=== PATIENT | female | born 1970 | race Hispanic/Latino ===

== ENCOUNTER 2018-08-16 19:12 | Observation (INO) | payer SELFPAY ==
[~2018-08-16] VITALS: Ht 165.1 cm; Wt 158.4 kg
--- OUTSIDE RECORDS SUMMARY | 2018-08-16 19:16 | XMS REPORT ---
Author Author Admin, Kersey Organization [facility] Address [address] [place] [address] Phone Allergies, Adverse Reactions, Alerts Allergy Name Reaction Description Start Date Severity Status Provider No Known Allergies Roselia Reinoso CMA Conditions or Problems Problem Name Problem Code Onset Date Status Entry Date Provider Comment Standard Description Annotate Exertional shortness of breath 786.09 Active Karoline Cespedes MD Other dyspnea and respiratory abnormality Hypertensive urgency 401.0 Active Karoline Cespedes MD Malignant essential hypertension Complex endometrial hyperplasia 621.32 Active Sara Gutierrez MD Complex endometrial hyperplasia without atypia Abnormal uterine bleeding 626.9 Active Sara Gutierrez MD Unspecified disorders of menstruation and other abnormal bleeding from female genital tract Vaccination Against Influenza V04.81 Active Kodi Reinoso MD Need for prophylactic vaccination and inoculation against influenza Abnormal cervical Pap AGC (atypical glandular cells) 795.00 Active Mily Hobbs MD Abnormal glandular Papanicolaou smear of cervix Chlamydia cervicitis 099.53 Active Mily Hobbs MD Venereal disease of the lower genitourinary sites due to Chlamydia trachomatis Arthritis 716.90 Active Mily Hobbs MD Arthropathy, unspecified, site unspecified Catheter Finisher And Inspector well woman exam V72.31 Active Mily Hobbs MD Routine gynecological examination MORBID OBESITY Active Mily Hobbs MD Morbid obesity Std screening V74.5 Active Mily Hobbs MD Screening examination for venereal disease Medication List Medication Instructions Start Date Stop Date Generic Name NDC Status Provider Patient Instruction No Drug Therapy Prescribed - none known did ask Karoline Cespedes MD Immunizations Vaccine Administration Date Value Standard Description influenza immunization (Flu Vax) has been administered given influenza virus vaccine, unspecified formulation Vital Signs Date Name Value Unit Range Description blood pressure, diastolic, second observation 106 mm[Hg] BP granados blood pressure, diastolic 113 mm[Hg] BP granados blood pressure, systolic, second observation 155 mm[Hg] BP sys blood pressure, systolic 169 mm[Hg] BP sys height E&M 65 [in_us] Bdy height pulse rate E&M 103 /min Heart rate respiratory rate E&M 22 /min Resp rate temperature E&M 98.4 [degF] Body temperature weight E&M 352 [lb_av] Weight Measured blood pressure, diastolic, second observation 86 mm[Hg] BP granados blood pressure, diastolic 89 mm[Hg] BP granados blood pressure, systolic, second observation 171 mm[Hg] BP sys blood pressure, systolic 181 mm[Hg] BP sys pulse rate E&M 81 /min Heart rate pulse rate #2 82 Heart rate blood pressure, diastolic 87 mm[Hg] BP granados blood pressure, systolic 143 mm[Hg] BP sys pulse rate E&M 72 /min Heart rate blood pressure, diastolic 89 mm[Hg] BP granados blood pressure, systolic 131 mm[Hg] BP sys pulse rate E&M 88 /min Heart rate blood pressure, diastolic 90 mm[Hg] BP granados blood pressure, systolic 141 mm[Hg] BP sys pulse rate E&M 80 /min Heart rate blood pressure, diastolic 68 mm[Hg] BP granados blood pressure, systolic 114 mm[Hg] BP sys pulse rate E&M 64 /min Heart rate blood pressure, diastolic 79 mm[Hg] BP granados blood pressure, systolic 118 mm[Hg] BP sys height E&M 65 [in_us] Bdy height pulse rate E&M 74 /min Heart rate respiratory rate E&M 18 /min Resp rate temperature E&M 98.4 [degF] Body temperature weight E&M 355.13 [lb_av] Weight Measured blood pressure, diastolic 83 mm[Hg] BP granados blood pressure, systolic 137 mm[Hg] BP sys height E&M 65 [in_us] Bdy height pulse rate E&M 81 /min Heart rate respiratory rate E&M 17 /min Resp rate temperature E&M 98.2 [degF] Body temperature weight E&M 356 [lb_av] Weight Measured blood pressure, diastolic 83 mm[Hg] BP granados blood pressure, systolic 125 mm[Hg] BP sys height E&M 65 [in_us] Bdy height pulse rate E&M 72 /min Heart rate respiratory rate E&M 17 /min Resp rate temperature E&M 98.1 [degF] Body temperature weight E&M 356.38 [lb_av] Weight Measured blood pressure, diastolic 83 mm[Hg] BP granados blood pressure, systolic 144 mm[Hg] BP sys height E&M 65 [in_us] Bdy height pulse rate E&M 69 /min Heart rate respiratory rate E&M 17 /min Resp rate temperature E&M 98.3 [degF] Body temperature weight E&M 357.25 [lb_av] Weight Measured blood pressure, diastolic 84 mm[Hg] BP granados blood pressure, systolic 118 mm[Hg] BP sys height E&M 65 [in_us] Bdy height pulse rate E&M 75 /min Heart rate respiratory rate E&M 18 /min Resp rate temperature E&M 98.2 [degF] Body temperature weight E&M 357 [lb_av] Weight Measured blood pressure, diastolic 112 mm[Hg] BP granados blood pressure, systolic 167 mm[Hg] BP sys height E&M 65 [in_us] Bdy height pulse rate E&M 86 /min Heart rate respiratory rate E&M 16 /min Resp rate temperature E&M 98.1 [degF] Body temperature weight E&M 362 [lb_av] Weight Measured blood pressure, diastolic 93 mm[Hg] BP granados blood pressure, systolic 157 mm[Hg] BP sys height E&M 65 [in_us] Bdy height pulse rate E&M 75 /min Heart rate respiratory rate E&M 16 /min Resp rate temperature E&M 97.5 [degF] Body temperature weight E&M 364 [lb_av] Weight Measured blood pressure, diastolic 84 mm[Hg] BP granados blood pressure, systolic 140 mm[Hg] BP sys height E&M 65 [in_us] Bdy height pulse rate E&M 88 /min Heart rate respiratory rate E&M 18 /min Resp rate temperature E&M 98.4 [degF] Body temperature weight E&M 361 [lb_av] Weight Measured blood pressure, diastolic, second observation 76 mm[Hg] BP granados blood pressure, diastolic 76 mm[Hg] BP granados blood pressure, systolic, second observation 130 mm[Hg] BP sys blood pressure, systolic 130 mm[Hg] BP sys height E&M 65 [in_us] Bdy height pulse rate E&M 65 /min Heart rate respiratory rate E&M 18 /min Resp rate temperature E&M 97.7 [degF] Body temperature weight E&M 361.25 [lb_av] Weight Measured Diagnostic Results Date Name Value Unit Range Description Lab Report: Chlamydia/GC Amplification - Microbiology Neisseria gonorrhoeae DNA probe Negative Negative Lab Report: Comp. Metabolic Panel (14), Lipid Panel, Hemoglobin A1c, RPR ... - Chemistry sodium, serum 139 mmol/L 330-732 5539/10/03 thyroid stimulating hormone, serum 2.400 u[iU]/mL 0.450-4.500 Lab Report: Comp. Metabolic Panel (14), Lipid Panel, Hemoglobin A1c, RPR ... - Serology rapid plasma reagin antibody, serum Non Reactive Non Reactive Lab Report: Lipid Panel - Chemistry very low density lipoproteins 18 mg/dL 5-40 Lab Report: Comp. Metabolic Panel (14), Lipid Panel, Hemoglobin A1c, RPR ... - Chemistry hepatitis B surface antigen Negative Negative carbon dioxide, venous blood 26 mmol/L 20-29 chloride, serum 98 mmol/L 96-106 Lab Report: Lipid Panel - Chemistry triglyceride, serum, fasting 89 mg/dL 0-149 Lab Report: Comp. Metabolic Panel (14), Lipid Panel, Hemoglobin A1c, RPR ... - Chemistry calcium, serum 8.8 mg/dL 8.7-10.2 urea nitrogen, blood 10 mg/dL 6-24 alanine aminotransferase (SGPT), serum 59 U/L 0-32 protein, total, serum 7.3 g/dL 6.0-8.5 alkaline phosphatase, serum 85 U/L 39-117 Lab Report: Comp. Metabolic Panel (14), Lipid Panel, Hemoglobin A1c, RPR ... - Serology hepatitis C antibody, serum <0.1 0.0-0.9 Lab Report: Lipid Panel - Chemistry LDL cholesterol, serum 111 mg/dL 0-99 Lab Report: Comp. Metabolic Panel (14), Lipid Panel, Hemoglobin A1c, RPR ... - Chemistry urea nitrogen/creatinine ratio, serum 17 9-23 hemoglobin A1C, blood, as % of total hemoglobin 5.3 % 4.8-5.6 Lab Report: Lipid Panel - Chemistry HDL cholesterol, serum 49 mg/dL >39 Lab Report: Comp. Metabolic Panel (14), Lipid Panel, Hemoglobin A1c, RPR ... - Genetics/fertility eGFR if 126 mL/min/1.73m2 >59 Lab Report: Comp. Metabolic Panel (14), Lipid Panel, Hemoglobin A1c, RPR ... - Chemistry globulin, serum 3.1 1.5-4.5 Estimated Glomerular Filtration Rate (calc) 109 mL/min/1.73m2 >59 albumin/globulin ratio, serum 1.4 1.2-2.2 creatinine, serum 0.58 mg/dL 0.57-1.00 Lab Report: Lipid Panel - Chemistry cholesterol, serum 178 mg/dL 100-199 Lab Report: Comp. Metabolic Panel (14), Lipid Panel, Hemoglobin A1c, RPR ... - Chemistry bilirubin, serum, total 0.5 mg/dL 0.0-1.2 Lab Report: Chlamydia/GC Amplification - Lab chlamydia DNA probe Negative Negative Lab Report: Comp. Metabolic Panel (14), Lipid Panel, Hemoglobin A1c, RPR ... - Chemistry blood glucose, random 96 mg/dL 65-99 aspartate aminotransferase (SGOT), serum 58 U/L 0-40 potassium, serum 4.3 mmol/L 3.5-5.2 albumin, serum 4.2 g/dL 3.5-5.5 Encounters Date Encounter Provider Code Facility 17:51:41 CDT Est Patient Exp Problem - 96043 Karoline Cespedes MD CPT-38711 [facility] 09:19:09 EDGER MACHINE HELPER Est Patient Exp Problem - 11591 Kodi Reinoso MD CPT-39382 [facility] 11:12:00 EDGER MACHINE HELPER Est Patient Exp Problem - 68597 Sara Gutierrez MD CPT-61893 [facility] 10:02:40 EDGER MACHINE HELPER Est Patient Exp Problem - 22060 Sara Gutierrez MD CPT-76198 [facility] 10:46:56 EDGER MACHINE HELPER Est Patient Exp Problem - 19191 Sara Gutierrez MD CPT-23616 [facility] OB 14:45:10 EDGER MACHINE HELPER Est Patient Detailed - 25768 Sara Gutierrez MD CPT-53216 [facility] 09:45:25 EDGER MACHINE HELPER Est Patient Exp Problem - 44783 Kodi Reinoso MD CPT-94427 [facility] 10:30:34 EDGER MACHINE HELPER Est Patient Problem Focus - 80730 Rodney Cobb MD CPT-16311 [facility] 09:24:26 CDT Est Patient Problem Focus - 81962 Mily Hobbs MD CPT-69775 [facility] 10:07:46 CDT Est Patient Problem Focus - 19451 Mily Hobbs MD CPT-09954 [facility] OB Procedures Code Procedure Name Date Entry Date Standard Description CPT-18732 INFLUENZA VACCINE QUADRIVALENT 3 YRS PLUS IM 09:44:17 EDGER MACHINE HELPER CPT-70974 Urinalysis - Dip only - In House 11:33:20 CDT CPT-02604 New Patient Well Exam (40 - 64 Yrs) - 26763 11:33:19 CDT CPT-27050 New Patient Well Exam (65 & Over) - 05418 11:33:19 CDT
--- OUTSIDE RECORDS SUMMARY | 2018-08-16 19:16 | XMS REPORT | Clinical Summary ---
Author Author [facility] Organization [facility] Address Unknown Phone Unavailable Care Team Providers Care Customer Service Professional Name Role Phone Polina Terry MD PCP Allergies No Known Allergies Medications End Date Status Medication Sig Dispensed Refills Start Date Active norgestimate-ethinyl Take 1 tablet 28 tablet 3 estradiol (ORTHO by mouth 9 TRI-CYCLEN LO) daily. 0.18/0.215/0.25 mg-25 mcg tabletIndications: Abnormal uterine bleeding (AUB) 06/11/2018 benzonatate (TESSALON) Take 1 20 capsule 0 100 mg capsule by 9 capsuleIndications: Upper mouth 3 times respiratory tract daily as infection, unspecified needed for up type to 7 days for Cough. 07/14/2018 Discontinued azithromycin (ZITHROMAX) Take 1 tablet 5 tablet 0 500 mg tabletIndications: by mouth 9 Upper respiratory tract daily. infection, unspecified type Active Problems Not on file Encounters Care Team Description Date Type Specialty Raul Anderson MD Abnormal uterine bleeding (AUB) (Primary Dx) 07/14/2018 Office Visit Family Practice 07/14/2018 Travel Polina Terry MD Preventative health care (Primary Dx); Dysplasia of cervix, low grade (VERONICA 1); Complex endometrial hyperplasia with atypia; Snoring; Upper respiratory tract infection, unspecified type 06/04/2018 Office Visit Family Practice Polina Terry MD Preventative health care 06/04/2018 Orders Only Family Practice 06/04/2018 Travel after 08/15/2017 Immunizations Name Dates Previously Given Next Due Tdap (Tetanus Toxoid, 06/04/2018 Reduced Diphtheria Toxoid And Acellular Pertussis, Absorbed) Family History Medical History Relation Name Comments Cancer Father lung ca -smoker Cancer Sister lung ca smoker Relation Name Status Comments Brother 4 Alive Daughter 1 Alive Father Maternal Grandfather Maternal Grandmother Mother Alive Paternal Grandfather Paternal Grandmother Sister Sister Alive Sister Alive Sister Alive Son 2 Alive Social History Date Tobacco Use Types Packs/Day Years Used Never Smoker Smokeless Tobacco: Never Used Alcohol Use Drinks/Week oz/Week Comments Never Alcohol Habits Answer Date Recorded How often do you have a drink containing alcohol? Never 06/04/2018 How many drinks containing alcohol do you have on Not asked a typical day when you are drinking? How often do you have six or more drinks on one Not asked occasion? Sex Assigned at Date Recorded Not on file Industry Job Start Date Occupation Not on file Not on file Not on file Travel End Travel History Travel Start No recent travel history available. Last Filed Vital Signs Time Taken Vital Sign Reading 07/14/2018 9:38 AM CDT Blood Pressure 134/74 07/14/2018 9:38 AM CDT Pulse 88 07/14/2018 9:38 AM CDT Temperature 37.1 C (98.7 F) 07/14/2018 9:38 AM CDT Respiratory Rate 18 - Oxygen Saturation - - Inhaled Oxygen - Concentration 07/14/2018 9:38 AM CDT Weight 159 kg (350 lb 9.6 oz) 07/14/2018 9:38 AM CDT Height 165.1 cm (5' 5") 07/14/2018 9:38 AM CDT Body Mass Index 58.34 Plan of Treatment Care Team Description Date Type Specialty 08/19/2018 Ancillary Radiology Procedure January Stone, ResidentMD Burt Baer [address] [address] 08/27/2018 Office Visit Gynecology Health Maintenance Due Date Last Done Comments IMM Influenza Seasonal 01/04/2019 Oct to June (>/=19 yrs) Cervical Cancer Scrn (1 01/06/2019 01/06/2018 Yrs) Breast Cancer Scrn 03/29/2019 03/29/2018 (Previously completed - (Yearly) External) Procedures Comments Procedure Name Priority Date/Time Associated Diagnosis HEPATITIS PANEL Routine 06/04/2018 Preventative health care 12:03 PM DESULFURIZER MACHINE HIV-1/HIV-2 ROUTINE Routine 06/04/2018 [facility] SCREENING 12:03 PM DESULFURIZER MACHINE TSH Routine 06/04/2018 Prevent[facility] care 12:03 PM DESULFURIZER MACHINE LIPID PROFILE Routine 06/04/2018 Preventative [facility] care 12:03 PM DESULFURIZER MACHINE HEMOGLOBIN A1C Routine 06/04/2018 Preventative health care 12:03 PM DESULFURIZER MACHINE COMPREHENSIVE METABOLIC Routine 06/04/2018 Preventative health care PANEL(DBIL NOT INCLUDED) 12:03 PM DESULFURIZER MACHINE CBC/DIFF Routine 06/04/2018 Preventative health care 12:03 PM DESULFURIZER MACHINE after 08/15/2017 Results * HIV-1/HIV-2 ROUTINE SCREENING (06/04/2018 12:03 PM DESULFURIZER MACHINE) HIV-1/HIV-2 Negative NEG BT OUTPATIENT DRAW 2 Performing Organization Address [facility] Phone Number MISYS BT OUTPATIENT DRAW 2 * HEMOGLOBIN A1C (06/04/2018 12:03 PM DESULFURIZER MACHINE) Hemoglobin A1c 5.9 4.3 - 6.1 % BT DIAGNOSTIC IMMUNOLOGY Est Average 122.6 mg/dL BT DIAGNOSTIC Gluc IMMUNOLOGY Specimen Blood Performing Organization Address [facility] Phone Number MISYS DIAGNOSTIC IMMUNOLOGY * COMPREHENSIVE METABOLIC PANEL(DBIL NOT INCLUDED) (06/04/2018 12:03 PM DESULFURIZER MACHINE) Albumin 4.0 3.7 - 5.3 g/dL BT MAIN-STATION 1 Calcium 9.2 8.6 - 10.3 mg/dL BT MAIN-STATION 1 CO2 26 21 - 31 mmol/L BT MAIN-STATION 1 Chloride 103 98 - 107 mmol/L BT MAIN-STATION 1 Creatinine 0.70 0.6 - 1.2 mg/dL BT MAIN-STATION 1 Glucose 75 70 - 110 mg/dL BT MAIN-STATION 1 Alk Phos 55 34 - 104 U/L BT MAIN-STATION 1 Potassium 4.6 3.5 - 5.1 mmol/L BT MAIN-STATION 1 Sodium 139 136 - 145 mmol/L BT MAIN-STATION 1 ALT 32 7 - 52 U/L BT MAIN-STATION 1 AST 29 13 - 39 U/L BT MAIN-STATION 1 Urea Nitrogen 13 7 - 25 mg/dL BT MAIN-STATION 1 T Bilirubin 0.7 0.2 - 1.2 mg/dL BT MAIN-STATION 1 T Protein 7.2 6.0 - 8.3 g/dL BT MAIN-STATION 1 GFR, Estimated >60 mL/min/1.73 m2 BT MAIN-STATION 1 GFR, Estim, >60 mL/min/1.73 m2 BT MAIN-STATION Afr-Am 1 Anion Gap 10 BT MAIN-STATION 1 Specimen Blood Performing Organization Address [facility] Phone [facility] * TSH (06/04/2018 12:03 PM DESULFURIZER MACHINE) TSH 3.12 0.57 - 3.74 uIU/mL BT MAIN-STATION 1 Specimen Blood Performing Organization Address [facility] Phone Number [facility] * LIPID PROFILE (06/04/2018 12:03 PM DESULFURIZER MACHINE) Cholesterol 166 mg/dL BT MAIN-STATION Comment: 1 REFERENCE RANGE: Desirable: <200 mg/dL Borderline: 200-240 mg/dL High Risk: >240 mg/dL Triglyceride 72 <150 mg/dL BT MAIN-STATION Comment: 1 REFERENCE RANGE: Normal: <150 mg/dL Borderline High: 150-199 mg/dL High: 200-499 mg/dL Very High: >nv=433 mg/dL HDL 51 mg/dL BT MAIN-STATION Comment: 1 Increased CHD risk: <40 mg/dL Decreased CHD risk: >60 mg/dL LDL 101 mg/dL BT MAIN-STATION Comment: 1 REFERENCE RANGE: Optimal: <100 mg/dL Near Optimal: 100-129 mg/dL Borderline High: 130-159 mg/dL High: 160-189 mg/dL Very High: >sm=966 mg/dL Specimen Blood Performing Organization Address [facility] Phone Number MISYS BT MAIN-STATION 1 * HEPATITIS PANEL (06/04/2018 12:03 PM DESULFURIZER MACHINE) HCV IgG Negative NEG BT OUTPATIENT DRAW 2 HBsAg Negative NEG BT OUTPATIENT DRAW 2 HAV, IgM Negative NEG BT OUTPATIENT DRAW 2 HBcAb, IgM Negative NEG BT OUTPATIENT DRAW 2 Specimen Blood Performing Organization Address [facility] Phone Number MISYS BT OUTPATIENT DRAW 2 * CBC/DIFF (06/04/2018 12:03 PM DESULFURIZER MACHINE) WBC 10.7 4.5 - 11.0 K/uL BT MAIN-STATION 2 RBC 4.97 4.20 - 5.40 M/uL BT MAIN-STATION 2 Hemoglobin 14.4 12.0 - 16.0 g/dL BT MAIN-STATION 2 Hematocrit 48.6 (H) 37.0 - 47.0 % BT MAIN-STATION 2 MCV 98 (H) 82 - 92 fL BT MAIN-STATION 2 MCH 29.0 27.0 - 32.0 pg BT MAIN-STATION 2 MCHC 29.6 (L) 32.0 - 36.0 g/dL BT MAIN-STATION 2 RDW 49.3 (H) 36.4 - 46.3 fL BT MAIN-STATION 2 Platelet 228 150 - 400 K/uL BT MAIN-STATION 2 Mean Platelet 11.3 9.4 - 12.4 fL BT MAIN-STATION Volume 2 Percent NRBC 0.0 BT MAIN-STATION 2 Absolute NRBC 0.00 BT MAIN-STATION 2 Neutrophil 69.4 34.0 - 70.0 % BT MAIN-STATION 2 Lymphocyte 21.6 20.0 - 50.0 % BT MAIN-STATION 2 Monocyte 5.3 5.0 - 12.0 % BT MAIN-STATION 2 Eosinophil 3.0 0.7 - 5.0 % BT MAIN-STATION 2 Basophil 0.4 0.1 - 1.2 % BT MAIN-STATION 2 Pct Immat Gran 0.3 0.0 - 0.5 BT MAIN-STATION 2 Neutrophil, Abs 7.45 (H) 1.56 - 6.13 K/uL BT MAIN-STATION 2 Lymphocyte, Abs 2.32 1.18 - 3.74 K/uL BT MAIN-STATION 2 Monocyte, Abs 0.57 (H) 0.24 - 0.36 K/uL BT MAIN-STATION 2 Eosinophil, Abs 0.32 0.04 - 0.36 K/uL BT MAIN-STATION 2 Basophil, Abs 0.04 0.01 - 0.08 K/uL BT MAIN-STATION 2 Absol Immat 0.03 0.00 - 0.03 K/uL BT MAIN-STATION Gran 2 Specimen Blood Performing Organization Address City/State/Zipcode Phone Number MISYS BT MAIN-STATION 2 after 08/15/2017 Insurance Type Payer Benefit Subscriber ID Effective Phone Address Plan / Dates Group [facility] xxxxxxx 2018-6 [address] INDIGENT FAMILY /06/2019 [id number] [employer] [address] [employer] PLAN [employer] PLAN xxxxxxx 04/06/20187 [address] [place] [address]
--- OUTSIDE RECORDS SUMMARY | 2018-08-16 19:16 | XMS REPORT ---
Author Author [facility] Address Unknown Phone Unavailable Care Team Providers Care Greige Mender Name Role Phone Unavailable Unavailable Problems This patient has no known problems. Allergies, Adverse Reactions, Alerts This patient has no known allergies or adverse reactions. Medications This patient has no known medications. Encounters Start Date/Time End Date/Time Encounter Type Admission Type Attending [facility] Care Department Encounter ID 2018-08-27 00:00:00 2018-08-27 00:00:00 Outpatient [facility] [id number] 2018-08-19 00:00:00 2018-08-19 00:00:00 Outpatient [facility] [id number] 2018-07-14 09:36:19 2018-07-14 09:36:19 Outpatient [facility] [id number] 2018-07-13 00:00:00 2018-07-13 00:00:00 Outpatient [facility] [id number] 2018-06-11 00:00:00 2018-06-11 00:00:00 Outpatient [facility] [id number] 2018-06-04 12:10:44 2018-06-04 12:10:44 Outpatient [facility] [id number] 2018-06-04 10:12:53 2018-06-04 10:12:53 Outpatient [facility] [id number] Results Test Description Test Time Test Comments Text Results Atomic Results Result Comments SCR MAMM BILATERAL ISAURA CAD DIGITAL 2018-04-13 13:40:01 - SCR MAMM BILATERAL ISAURA CAD DIGITALBILATERAL DIGITAL SCREENING MAMMOGRAM 3D/2D WITH CAD: 04/01/2018Digital breast tomosynthesis was performed in addition to routine CC and MLO views. Current mammographic images were evaluated by either a Augure M- Vu or a [employer] ImageChecker CAD (computer aided detection system). No prior exams were available for comparison. There are scattered fibroglandular tissues in both breasts. There are benign intramammary nodes in the right breast. No suspicious mass, architectural distortion, malignant type calcification, or lymph node abnormality detected. IMPRESSION: BENIGNThere is no mammographic evidence of malignancy. Resume annual screening mammography in one year. Estela branham/abida:04/13/2018 13:40:01 Cable Repairer: Cass BRYAN, [facility]-FWletter sent: BIRADS 1-2 Normal Mammogram BI-RADS: 2 Benign
[2018-08-16] MEDS ORDERED: ASPIRIN 81 MG CHEW TAB PO ONE (20:00)
[2018-08-16 20:22] LABS: BASOPHILS % 0.4 % (0.0-1.0); EOSINOPHILS # (AUTO) 0.2 (0.0-0.4); EOSINOPHILS % 2.4 % (0.0-6.0); HEMATOCRIT 39.8 % (34.2-44.1); HEMOGLOBIN 13.2 g/dL (12.0-16.0); LYMPHOCYTES # (AUTO) 1.4 (1.0-3.2); LYMPHOCYTES % 15.7 % (18.0-39.1); MEAN CORPUSCULAR HEMOGLOBIN 31.3 pg (28-32); MEAN CORPUSCULAR HGB CONC 33.2 g/dL (31-35); MEAN CORPUSCULAR VOLUME 94.3 fL (81-99); MONOCYTES # (AUTO) 0.4 (0.2-0.8); MONOCYTES % 4.9 % (4.4-11.3); NEUTROPHILS # (AUTO) 6.9 (2.1-6.9); NEUTROPHILS % 76.3 % (38.7-80.0); PLATELET COUNT 202 x10e3/uL (140-360); RED BLOOD COUNT 4.22 x10e6/uL (3.6-5.1); RED CELL DISTRIBUTION WIDTH 13.3 % (11.7-14.4)
[2018-08-16 20:43] LABS: ALANINE AMINOTRANSFERASE 26 IU/L (0-55); ALBUMIN 3.3 g/dL (3.5-5.0); ALBUMIN/GLOBULIN RATIO 0.8 (0.8-2.0); ALKALINE PHOSPHATASE 70 IU/L (40-150); ANION GAP 15.9 mmol/L (8-16); BLOOD UREA NITROGEN 14 mg/dL (7-26); BUN/CREATININE RATIO 19 (6-25); CALCIUM 10.2 mg/dL (8.4-10.2); CARBON DIOXIDE 23 mmol/L (22-29); CHLORIDE 104 mmol/L (98-107); CREATINE KINASE 80 IU/L (29-168); CREATININE, SERUM 0.75 mg/dL (0.57-1.11); EST GLOMERULAR FILTRATION RATE > 60 ML/MIN (60-); GLUCOSE 142 mg/dL (74-118); POTASSIUM 3.9 mmol/L (3.5-5.1); SODIUM 139 mmol/L (136-145)
--- NOTE | 2018-08-16 21:13 | Diagnostic Imaging Report ---
EXAMINATION: CHEST SINGLE (NOT PORTABLE) INDICATION: High blood pressure, shortness of breath no chest pain ^ERMD ORDER ^[id number] ^2044 ^Y COMPARISON: None FINDINGS: AP view motion artifact limits evaluation. TUBES and LINES: None. LUNGS/PLEURA: The lungs are clear. No pleural effusion or pneumothorax. HEART AND MEDIASTINUM: Borderline enlarged cardiac silhouette. BONES AND SOFT TISSUES: No acute osseous lesion. Soft tissues are unremarkable. UPPER ABDOMEN: No free air under the diaphragm. IMPRESSION: Borderline enlarged cardiac silhouette, otherwise no acute abnormality within the limits of motion artifact. Signed by: Nader Gagnon MD on 08/16/2018 9:10 PM
[2018-08-16] MEDS ORDERED: SODIUM CHLORIDE 0.9% 50ML 50 ML ONE (22:10)
[2018-08-16] MEDS ORDERED: IOPAMIDOL 370 MG/ML 200 ML INFUS..BTL INJ ONE (22:11)
--- NOTE | 2018-08-16 23:41 | Diagnostic Imaging Report ---
EXAMINATION: CT of the chest with contrast, PE protocol. TECHNIQUE: Spiral CT images of the chest were performed from the lung apices through the level of the adrenal glands after the IV administration of 100 cc of Isovue 370. Thin section reconstructions were obtained with special concentration on the pulmonary arteries. Coronal and sagittal reformatted images were performed. COMPARISON: AP chest 08/16/2018 CLINICAL HISTORY:Shortness of breath DISCUSSION: Exam is markedly limited by patient's large body habitus and resultant photon starvation Lungs: Filling defects are identified in the right upper lobe pulmonary artery (series 2, image 29 and 32), right interlobar pulmonary artery (series 2, image 47) and segmental branches of right lower (series 2, images 51 and 63) and left lower lobe (series 2, images 46, 50 and 58) pulmonary arteries. Filling defects are also seen in right middle lobe pulmonary artery (series 2, image 48), consistent with pulmonary emboli. No consolidation, masses or nodules. Airways: <The major airways are clear, without endobronchial lesions..> Pleura: <There is no evidence of pleural effusion or pneumothorax.> Heart and mediastinum: Thyroid is unremarkable. Mild cardiomegaly. No pericardial effusion. Aorta is not aneurysmal. Main pulmonary artery is enlarged, measuring 3.6 cm. No mediastinal, hilar or axillary adenopathy. Abdomen: The visualized portions of the liver, spleen, pancreas, kidneys and adrenal glands are unremarkable. Bones and soft tissues: No acute abnormalities. Multilevel degenerative disc changes in the thoracic spine. Visualized soft tissues are unremarkable. IMPRESSION: 1. Markedly limited exam due to patient's large body habitus. Despite this, filling defects are noted in right upper lobe pulmonary artery, right interlobar pulmonary artery and bilateral lower lobe pulmonary arteries, consistent with pulmonary emboli. No pulmonary infarctions, consolidation or masses. 2. Enlarged main pulmonary artery, suggesting pulmonary hypertension. 3. Mild cardiomegaly. 4. Findings discussed with Dr. Hall in the ER August 16, 2018 at 1132 hours Signed by: Dr. Navin Jimenez M.D. on 08/16/2018 11:38 PM
--- OUTSIDE RECORDS SUMMARY | 2018-08-16 23:41 | XMS REPORT | Clinical Summary ---
Author Author [facility] Organization [facility] Address Unknown Phone Unavailable Care Team Providers Care Seafood Harvester Name Role Phone Polina Terry MD PCP [...] Radiology Procedure January Stone, ResidentMD Burt Baer [address] [address] 08/27/2018 Office Visit Gynecology Health Maintenance Due Date Last Done Comments IMM Influenza Seasonal 01/04/2019 Oct to June (>/=19 yrs) Cervical Cancer Scrn (1 01/06/2019 01/06/2018 Yrs) Breast Cancer Scrn 03/29/2019 03/29/2018 (Previously completed - (Yearly) External) Procedures Comments Procedure Name Priority Date/Time Associated Diagnosis HEPATITIS PANEL Routine 06/04/2018 Preventative health care 12:03 PM [employer]ULTANT HIV-1/HIV-2 ROUTINE Routine 06/04/2018 Preventative health care SCREENING 12:03 PM [employer]ING CONSULTANT TSH Routine 06/04/2018 Preventative health care 12:03 PM [employer]URING CONSULTANT LIPID PROFILE Routine 06/04/2018 Preventative health care 12:03 PM [employer]ING CONSULTANT HEMOGLOBIN A1C Routine 06/04/2018 Preventative health care 12:03 PM ADV[employer]ED [employer]UFA[employer]URING CONSULTANT COMPREHENSIVE METABOLIC Routine 06/04/2018 Preventative health care PANEL(DBIL NOT INCLUDED) 12:03 PM AD[employer]ED MANUFA[employer]URING CONSULTANT CBC/DIFF Routine 06/04/2018 Preventative health care 12:03 PM ADV[employer]ED MANUFACTURING CONSULTANT after 08/15/2017 Results * HIV-1/HIV-2 ROUTINE SCREENING (06/04/2018 12:03 PM ADVANCED MANUFACTURING CONSULTANT) HIV-1/HIV-2 Negative NEG BT OUTPATIENT DRAW 2 Performing Organization Address [facility] Phone Number [facility] BT OUTPATIENT DRAW 2 * HEMOGLOBIN A1C (06/04/2018 12:03 PM ADVANCED MANUFACTURING CONSULTANT) Hemoglobin A1c 5.9 4.3 - 6.1 % BT DIAGNOSTIC IMMUNOLOGY Est Average 122.6 mg/dL BT DIAGNOSTIC Gluc IMMUNOLOGY Specimen Blood Performing Organization Address [facility] Phone Number [facility] DIAGNOSTIC IMMUNOLOGY * COMPREHENSIVE METABOLIC PANEL(DBIL NOT INCLUDED) (06/04/2018 12:03 PM ADVANCED MANUFACTURING CONSULTANT) Albumin 4.0 3.7 - 5.3 g/dL BT [...] MAIN-STATION 1 Specimen Blood Performing Organization Address [facility] [place] [facility] * TSH (06/04/2018 12:03 PM ADVANCED MANUFACTURING CONSULTANT) TSH 3.12 0.57 - 3.74 uIU/mL BT MAIN-STATION 1 Specimen Blood Performing Organization Address [facility] [place] Phone [facility] * LIPID PROFILE (06/04/2018 12:03 PM ADVANCED MANUFACTURING CONSULTANT) Cholesterol 166 mg/dL BT MAIN-STATION Comment: 1 REFERENCE RANGE: Desirable: <200 mg/dL Borderline: 200-240 mg/dL High Risk: >240 mg/dL Triglyceride 72 <150 mg/dL BT MAIN-STATION Comment: 1 REFERENCE RANGE: Normal: <150 mg/dL Borderline High: 150-199 mg/dL High: 200-499 mg/dL Very High: >bk=255 mg/dL HDL 51 mg/dL BT MAIN-STATION Comment: 1 Increased CHD risk: <40 mg/dL Decreased CHD risk: >60 mg/dL LDL 101 mg/dL BT MAIN-STATION Comment: 1 REFERENCE RANGE: Optimal: <100 mg/dL Near Optimal: 100-129 mg/dL Borderline High: 130-159 mg/dL High: 160-189 mg/dL Very High: >ce=183 mg/dL Specimen Blood Performing Organization Address [facility] [place] Phone Number [facility] BT MAIN-STATION 1 * HEPATITIS PANEL (06/04/2018 12:03 PM ADV[employer]ED MANUFACTURING CONSULTANT) HCV IgG Negative NEG BT OUTPATIENT DRAW 2 HBsAg Negative NEG BT OUTPATIENT DRAW 2 HAV, IgM Negative NEG BT OUTPATIENT DRAW 2 HBcAb, IgM Negative NEG BT OUTPATIENT DRAW 2 Specimen Blood Performing Organization Address [facility] [place] Phone Number [facility] BT OUTPATIENT DRAW 2 * CBC/DIFF (06/04/2018 12:03 PM ADV[employer]ED MANUFACTURING CONSULTANT) WBC 10.7 4.5 - 11.0 K/uL BT [...] Effective Phone Address Plan / Dates Group [facility] xxxxxxx 2018-3 [address] [employer] FAMILY /06/2019 [id number] [place], [place] [address] [facility] [employer] [employer] xxxxxxx 04/06/20180 [address] [place] [address]
[2018-08-16] MEDS: ENOXAPARIN INJ 80 MG/0.8 ML SYR SC SCH (23:56)
[2018-08-17] VITALS (8 sets, daily range): BP systolic 134–164; BP diastolic 76–90
--- NOTE | 2018-08-17 03:20 | NUR ---
Pt received from ER. Pt A&O and in no apparent distress. Pt Maori speaking but can communicate slightly and daughter can translate. Pt on tele and room air. All safety measures ensured, bed alarm on, and call elam near.
--- NOTE | 2018-08-17 07:23 | NUR ---
Walking rounds/bedside report complete. Pt resting in bed and in no distress. All safety measures ensured.
[2018-08-17 07:42] LABS: BASOPHILS % 0.4 % (0.0-1.0); EOSINOPHILS # (AUTO) 0.2 (0.0-0.4); HEMATOCRIT 39.3 % (34.2-44.1); HEMOGLOBIN 12.7 g/dL (12.0-16.0); LYMPHOCYTES # (AUTO) 1.9 (1.0-3.2); LYMPHOCYTES % 24.6 % (18.0-39.1); MEAN CORPUSCULAR HEMOGLOBIN 30.9 pg (28-32); MEAN CORPUSCULAR HGB CONC 32.3 g/dL (31-35); MEAN CORPUSCULAR VOLUME 95.6 fL (81-99); MONOCYTES # (AUTO) 0.5 (0.2-0.8); MONOCYTES % 6.6 % (4.4-11.3); NEUTROPHILS # (AUTO) 5.2 (2.1-6.9); NEUTROPHILS % 65.9 % (38.7-80.0); PLATELET COUNT 188 x10e3/uL (140-360); RED BLOOD COUNT 4.11 x10e6/uL (3.6-5.1); RED CELL DISTRIBUTION WIDTH 13.2 % (11.7-14.4)
[2018-08-17 08:00] LABS: ALANINE AMINOTRANSFERASE 24 IU/L (0-55); ALBUMIN/GLOBULIN RATIO 0.8 (0.8-2.0); ALKALINE PHOSPHATASE 58 IU/L (40-150); ANION GAP 11.9 mmol/L (8-16); BLOOD UREA NITROGEN 10 mg/dL (7-26); BUN/CREATININE RATIO 16 (6-25); CALCIUM 9.3 mg/dL (8.4-10.2); CARBON DIOXIDE 24 mmol/L (22-29); CHLORIDE 102 mmol/L (98-107); CREATININE, SERUM 0.64 mg/dL (0.57-1.11); EST GLOMERULAR FILTRATION RATE > 60 ML/MIN (60-); GLUCOSE 98 mg/dL (74-118); POTASSIUM 3.9 mmol/L (3.5-5.1); SODIUM 134 mmol/L (136-145)
[2018-08-17 08:06] LABS: CREATINE KINASE MB 0.9 ng/mL (0-5.0)
[2018-08-17] MEDS: ENOXAPARIN INJ 80 MG/0.8 ML SYR SC SCH ×2 (08:15→20:31)
[2018-08-17] MEDS ORDERED: ONDANSETRON HCL INJ 2MG/ML 2ML 2 MG/ML VIAL IV PRN (09:00)
[2018-08-17] MEDS ORDERED: HYDRALAZINE HCL 20 MG/ML VIAL IV PRN (09:00)
[2018-08-17] MEDS ORDERED: MORPHINE SULFATE INJ 4 MG/ML INJ 1ML IV PRN (09:30)
[2018-08-17] MEDS: AMLODIPINE BESYLATE 10 MG TAB PO SCH (12:13)
--- NOTE | 2018-08-17 13:50 | NUR ---
Visit made by the Spiritual Care Department Pastoral Visitor, Cindy Hill. PV provided pastoral presence, prayer, hospitality, and supportive listening. Pastoral Visitor informed pt/family of the scope of Occup[employer]ist Services and availability. BEE MACHADO Lens Silverer Spiritual Care Department O: [phone] Pager: [phone] ([phone] number calling from)
[2018-08-17] MEDS: FAMOTIDINE 20 MG TAB PO SCH (16:11)
[2018-08-17 16:41] LABS: CREATINE KINASE 56 IU/L (29-168)
[2018-08-18] VITALS (8 sets, daily range): BP systolic 111–159; BP diastolic 67–95
[2018-08-18 00:42] LABS: BASOPHILS % 0.4 % (0.0-1.0); EOSINOPHILS # (AUTO) 0.2 (0.0-0.4); EOSINOPHILS % 2.5 % (0.0-6.0); HEMATOCRIT 38.7 % (34.2-44.1); LYMPHOCYTES # (AUTO) 2.6 (1.0-3.2); LYMPHOCYTES % 28.3 % (18.0-39.1); MEAN CORPUSCULAR HEMOGLOBIN 30.9 pg (28-32); MEAN CORPUSCULAR HGB CONC 33.6 g/dL (31-35); MONOCYTES # (AUTO) 0.6 (0.2-0.8); NEUTROPHILS # (AUTO) 5.6 (2.1-6.9); NEUTROPHILS % 61.6 % (38.7-80.0); PLATELET COUNT 217 x10e3/uL (140-360); RED BLOOD COUNT 4.21 x10e6/uL (3.6-5.1); RED CELL DISTRIBUTION WIDTH 13.2 % (11.7-14.4)
[2018-08-18 00:47] LABS: MEAN CORPUSCULAR VOLUME 91.9 fL (81-99)
[2018-08-18 01:04] LABS: CHOL/HDL RATIO 2.8 (3.0-3.6)
[2018-08-18 01:05] LABS: % IRON SATURATION 14 % (15-50); ANION GAP 13.5 mmol/L (8-16); BLOOD UREA NITROGEN 12 mg/dL (7-26); BUN/CREATININE RATIO 16 (6-25); CALCIUM 9.3 mg/dL (8.4-10.2); CARBON DIOXIDE 22 mmol/L (22-29); CHLORIDE 101 mmol/L (98-107); CREATININE, SERUM 0.73 mg/dL (0.57-1.11); EST GLOMERULAR FILTRATION RATE > 60 ML/MIN (60-); GLUCOSE 103 mg/dL (74-118); IRON 57 ug/dL (50-170); MAGNESIUM 1.7 MG/DL (1.3-2.1); POTASSIUM 3.5 mmol/L (3.5-5.1); SODIUM 133 mmol/L (136-145); TOTAL IRON BINDING CAPACITY 413 ug/dL (261-478); TRANSFERRIN 295 mg/dL (180-382)
[2018-08-18 01:28] LABS: FERRITIN 75.63 ng/mL (4.63-204.00); THYROID STIMULATING HORMONE 1.895 uIU/mL (0.350-4.940)
[2018-08-18 01:40] LABS: FOLATE 15.3 ng/mL (7.0-15.4)
--- NOTE | 2018-08-18 06:16 | NUR ---
Per consult binder, Dr. Jamison was notified of consult for PE 08/17/18 at 0912.
[2018-08-18] MEDS ORDERED: ASCORBIC ACID500 MG PO (09:20)
[2018-08-18] MEDS ORDERED: FERROUS SULFAT325 MG PO (09:20)
[2018-08-18] MEDS: FAMOTIDINE 20 MG TAB PO SCH ×2 (09:58→17:55)
[2018-08-18] MEDS: ENOXAPARIN INJ 80 MG/0.8 ML SYR SC SCH (09:59)
[2018-08-18] MEDS: AMLODIPINE BESYLATE 10 MG TAB PO SCH (09:59)
[2018-08-18] MEDS: ACETAMINOPHEN 325 MG TAB PO PRN ×2 (09:59→17:57)
[2018-08-18] MEDS: ASCORBIC ACID 500 MG TAB PO SCH (17:55)
[2018-08-18] MEDS: RIVAROXABAN 15 MG TABLET PO SCH (17:55)
[2018-08-18] MEDS: FERROUS SULFATE 325 MG TAB PO SCH (17:55)
--- NOTE | 2018-08-18 20:35 | NUR ---
PATIENT READ A BLOOD PRESSURE OF 159/95 FOR 20:00 VITALS, PATIENT COMPLAINED OF HEADACHE EARLIER AND WAS MEDICATED. AFTER REASSESSMENT THE BLOOD PRESSURE WAS RECHECKED AND READ 127/64, PATIENT SHOWED NO SIGNS OF DISTRESS AND IS FREE OF HEADACHE.
[2018-08-19 00:16] VITALS: BP 123/83
--- NOTE | 2018-08-19 00:16 | Consultation ---
DATE OF CONSULTATION: 08/18/2018 REASON FOR CONSULTATION: Pulmonary embolism. HISTORY OF PRESENT ILLNESS: She is a very pleasant speaking female admitted through emergency with worsening shortness of breath for last one week. She is complaining of [id number] dyspnea by walking and exertion and being in a supine position. No fever or chills. No leg swelling. The patient was not a smoker. No prior history of any blood clot. No significant family history of any blood disease. Initial workup included CT chest shows pulmonary embolism involving the right pulmonary artery and left pulmonary artery. The patient was started on Lovenox treatment. The patient has no prior risk factor. Currently, the patient doing better. PAST MEDICAL HISTORY: Morbid obesity. ALLERGIES: NKDA. MEDICATION LIST: Reviewed. SOCIAL HISTORY: No smoking, alcohol, or drugs. REVIEW OF SYSTEMS: A 12-point review as per the HPI. FAMILY HISTORY: Noncontributory. PHYSICAL EXAMINATION: GENERAL: Alert, awake, communicative. HEENT: Normocephalic, atraumatic. Sclerae anicteric. Conjunctivae clear. NECK: Supple. CHEST: Decreased breath sounds at bases. CARDIOVASCULAR: Regular rate and rhythm. EXTREMITIES: No edema. LABORATORY AND IMAGING DATA: Reviewed. ASSESSMENT AND PLAN: The patient with no significant medical history, admitted through emergency with worsening shortness of breath. Workup so far consistent with little right pulmonary artery and left pulmonary artery pulmonary embolism. The patient is currently on Lovenox. This is unprovoked event. The patient will need hypercoagulable workup, could be done as outpatient. At this point, we will continue anticoagulation treatment. The patient will need at least six months of anticoagulation treatment. We will switch from Lovenox to Xarelto 15 mg twice a day. We will monitor the patient very closely. Thank you, Dr. Daugherty for the consultation. MD SHANIQUA Cobian/MODJosesito /[id number]
--- NOTE | 2018-08-19 03:40 | NUR ---
UPON MAKING ROUNDS THE PATIENT IS RESTING COMFORTABLY, EYES CLOSED, NOT RESPIRATORY DISTRESS NOTED. CALL LIGHT IS IN REACH, FAMILY AT BEDSIDE, WILL CONTINUE TO MONITOR.
[2018-08-19 05:04] VITALS: BP 146/90
[2018-08-19 07:37] VITALS: BP 124/72
[2018-08-19] MEDS ORDERED: XARELTO PO (08:37)
[2018-08-19] MEDS: FAMOTIDINE 20 MG TAB PO SCH (08:45)
[2018-08-19] MEDS: FERROUS SULFATE 325 MG TAB PO SCH (08:45)
[2018-08-19] MEDS: AMLODIPINE BESYLATE 10 MG TAB PO SCH (08:46)
[2018-08-19] MEDS: ASCORBIC ACID 500 MG TAB PO SCH (08:46)
[2018-08-19] MEDS: RIVAROXABAN 15 MG TABLET PO SCH (08:46)
[2018-08-19] MEDS ORDERED: ONDANSETRON HCL 4 MG ORAL DISINTEGRATING TAB PO PRN (09:45)
--- NOTE | 2018-08-20 10:18 | Discharge Summary ---
ADMISSION DIAGNOSES: Pulmonary embolism, fatigue, morbid obesity, hypertension. DISCHARGE DIAGNOSES: Pulmonary embolism, fatigue, morbid obesity, hypertension, rule out hypothyroidism, anemia, rule out deep venous thrombosis of the lower extremity. PAST MEDICAL HISTORY: The patient has a history of menorrhagia. PAST SURGICAL HISTORY: Cholecystectomy, x2. FAMILY HISTORY: The patient's father had cancer. SOCIAL HISTORY: Noncontributory. HOSPITAL COURSE: A 48-year-old female complains of fatigue and dyspnea on exertion for the last week. She was at her primary care office yesterday and her blood pressure was in the 170s. They were unable to control her blood pressure, so her daughter brought her to the ER. Symptoms were worse with activity and improved with deep breathing. She denies cough, fever, travel, and bilateral lower extremity edema. On admission, the patient was started on Lovenox, weight based. Hematology/Oncology was consulted. Bilateral lower extremity venous Doppler was negative. Troponins were negative. Echo showed an EF of 50%. Chest x-ray showed borderline enlarged cardiac silhouette, otherwise no acute abnormality. CT of the chest showed markedly limited exam due to the patient's large body habitus. Despite this, filling defects are noted in the right upper lobe pulmonary artery, right interlobar pulmonary artery, and bilateral lower lobe pulmonary arteries consistent with PE and large main pulmonary artery suggesting pulmonary hypertension. Mild cardiomegaly. Bilateral lower extremities Doppler was negative. D-dimer was elevated at 4840. Per Hematology/Oncology, the patient can be discharged home on Xarelto 15 mg p.o. b.i.d. The patient has a gold card and we are worried about the patient's ability to afford the anticoagulation. The patient will follow up in Dr. Jamison's office tomorrow to be given a couple of weeks of Xarelto samples. The patient and daughter understand discharge instructions and agrees to plan. The patient understands that she will need to follow up closely with Dr. Jamison or with . Vital signs stable. The patient afebrile. Dictated by Minna Figueroa NP Jj Daugherty MD CRYSTAL/MODL /[id number]
== END 2018-08-19 10:15 | disposition home or self-care (01) ==
LOC: ER 19:12 → ERHOLD 23:38 → IMCU 08-17 03:18
PROVIDERS: ADMIT Internal Medicine; ATTEND Internal Medicine
DX: I26.99 Other pulmonary embolism without acute cor pulmonale (principal); J81.0 Acute pulmonary edema; I10 Essential (primary) hypertension; D64.9 Anemia, unspecified; Z83.3 Family history of diabetes mellitus; Z82.49 Family history of ischemic heart disease and other diseases of the circulatory system; Z90.49 Acquired absence of other specified parts of digestive tract; Z80.9 Family history of malignant neoplasm, unspecified; E66.01 Morbid (severe) obesity due to excess calories; Z68.43 Body mass index [BMI] 50.0-59.9, adult
CPT/HCPCS: 36415 ×3; 71045; 71260; 80048; 80053 ×2; 80061; 82550 ×2; 82553 ×2; 82607; 82728; 82746; 82948; 83036; 83540; 83735; 83880; 84439; 84443; 84466; 84484 ×2; 85025 ×3; 85379; 93005; 93306; 93970; 99284; G0378 ×4; J1650 ×3; Q9967